=== PATIENT | male | born 1985 | race Caucasian/White ===

== ENCOUNTER 2021-09-19 16:26 | Emergency (ER) | payer BC, OTHER ==
[~2021-09-19 16:26] MED LIST: NORCO 5-325 TA1 EACH PO
[2021-09-19 18:49] LABS: HEMOGLOBIN 14.7 gm/dl (14.0-17.5); RED BLOOD COUNT 5.36 M/UL (4.20-5.50); WHITE BLOOD COUNT 8.1 K/UL (4.5-11.0)
[2021-09-19 19:21] LABS: BUN/CREATININE RATIO 15 (0-10)
== END 2021-09-19 21:15 | disposition home or self-care (01) ==
LOC: ER1 16:26
PROVIDERS: Physician Assistant
DX: R07.9 Chest pain, unspecified (principal); R10.9 Unspecified abdominal pain; J45.909 Unspecified asthma, uncomplicated; Z90.49 Acquired absence of other specified parts of digestive tract; Z88.2 Allergy status to sulfonamides
CPT/HCPCS: 71045; 80053; 82550; 82553; 83874; 84484; 85025; 99285

== ENCOUNTER 2021-10-06 23:34 | Emergency (ER) | payer BC, OTHER ==
[2021-10-07 02:10] LABS: HEMOGLOBIN 14.6 gm/dl (14.0-17.5); RED BLOOD COUNT 5.13 M/UL (4.20-5.50); WHITE BLOOD COUNT 8.8 K/UL (4.5-11.0)
[2021-10-07 03:11] LABS: BUN/CREATININE RATIO 15 (0-10)
== END 2021-10-07 05:13 | disposition home or self-care (01) ==
LOC: ER1 23:34
PROVIDERS: Physician Assistant Medical
DX: R07.89 Other chest pain (principal); Z88.5 Allergy status to narcotic agent; Z88.2 Allergy status to sulfonamides
CPT/HCPCS: 71045; 80053; 82550; 82553; 83880; 84439; 84443; 84484; 85025; 85379; 93005; 99285

== ENCOUNTER 2021-12-17 13:10 | Observation (INO) | payer BC, OTHER ==
[~2021-12-17] VITALS: Ht 180.3 cm; Wt 109.8 kg
[2021-12-17 15:09] LABS: RED BLOOD COUNT 5.22 M/UL (4.20-5.50); WHITE BLOOD COUNT 6.4 K/UL (4.5-11.0)
[2021-12-17 15:26] LABS: BUN/CREATININE RATIO 13 (0-10)
[2021-12-18 04:56] LABS: RED BLOOD COUNT 4.87 M/UL (4.20-5.50); WHITE BLOOD COUNT 6.8 K/UL (4.5-11.0)
[2021-12-18 05:09] LABS: BUN/CREATININE RATIO 14 (0-10)
--- NOTE | 2021-12-19 15:15 | NUR ---
MADE AWARE OF PATIENT COMPLAINING OF PAIN IN HIS WRIST AT THIS TIME. TYELNOL ORDERED AND GIVEN. NO DISTRESS NOTED. CAPP REFELL LESS THAN 3 SECONDS, PATIENT ABLE TO MOVE HAND COMPLETELY, HAND NOTED BE PINK IN COLOR.
[2021-12-19] MEDS ORDERED: ASPIRIN EC81 MG PO (16:49)
[2021-12-19] MEDS ORDERED: PROTONIX 40 MG40 M1 PO (16:49)
[2021-12-19] MEDS ORDERED: ATORVASTATIN CA20 MG PO (16:49)
[2021-12-19] MEDS ORDERED: NITROSTAT0.4 MG SL (16:50)
== END 2021-12-19 17:30 | disposition home or self-care (01) ==
LOC: ER1 13:10 → CDU 16:12 → MED SURG 4 16:12
PROVIDERS: Emergency Medicine; ADMIT Internal Medicine
PROC: B2111ZZ Fluoroscopy of Multiple Coronary Arteries using Low Osmolar Contrast (ICD-10-PCS; principal; 2021-12-19)
PROC: B2161ZZ Fluoroscopy of Right and Left Heart using Low Osmolar Contrast (ICD-10-PCS; 2021-12-19)
PROC: 4A023N8 Measurement of Cardiac Sampling and Pressure, Bilateral, Percutaneous Approach (ICD-10-PCS; 2021-12-19)
DX: R07.89 Other chest pain (principal); Z20.822 Contact with and (suspected) exposure to COVID-19; I44.7 Left bundle-branch block, unspecified; E78.5 Hyperlipidemia, unspecified; I51.89 Other ill-defined heart diseases; F41.9 Anxiety disorder, unspecified; F17.290 Nicotine dependence, other tobacco product, uncomplicated; Z88.1 Allergy status to other antibiotic agents; Z88.2 Allergy status to sulfonamides; Z82.49 Family history of ischemic heart disease and other diseases of the circulatory system
CPT/HCPCS: 71045; 78452; 80048; 80053; 80061; 82550; 82553; 83036; 84443; 84484; 85025; 85379; 93005; 93017; 93270; 96374; 99152; 99153; 99285; A9502; C1769; C1887; C1894; G0378; J1644; J1650; J2060; J2250; J2785; J3010; J7040; Q9967; U0002